=== PATIENT | female | born 1935 | race Caucasian/White ===

== ENCOUNTER → 2016-12-13 | Outpatient (CLI) | payer OTHER, BC | LOC: BMCIMAGING 08:20 | PROVIDERS: ATTEND Internal Medicine | DX: Z12.31 Encounter for screening mammogram for malignant neoplasm of breast (principal) | CPT/HCPCS: G0202 ==

== ENCOUNTER → 2017-08-20 | Outpatient (CLI) | payer OTHER, BC | LOC: BMCIMAGING 11:00 | PROVIDERS: ATTEND Family Medicine | DX: M79.89 Other specified soft tissue disorders (principal) ==

== ENCOUNTER → 2018-01-12 | Outpatient (CLI) | payer OTHER, BC | LOC: BMCIMAGING 08:26 | PROVIDERS: ATTEND Internal Medicine | DX: Z12.31 Encounter for screening mammogram for malignant neoplasm of breast (principal); Z80.3 Family history of malignant neoplasm of breast ==

== ENCOUNTER 2018-02-07 22:04 | Inpatient (IN) | payer OTHER, BC ==
--- NOTE | 2018-02-07 22:14 | EDPHY ---
H & P Time Seen by Provider: 02/07/18 22:11 HPI/ROS: Chief Complaint: Fall, right hip pain HPI: 82-year-old woman who reports no medical problems had a mechanical fall this evening landing on her right hip. Patient states she was going from her bedroom to the bathroom. Patient does admit to drinking gin and tonics this evening. EMS noted that she had an irregular rhythm. She reports no history of cardiac arrhythmia is in the past. No chest pain or shortness of breath. She did not hit her head. No loss of consciousness. She is awake and alert and able to tell me what happened. No fevers or chills. No cough. Family was able to help to a feet get her the bathroom with assistance but is continuing to complain of right-sided hip pain. She was able to weight bear. ROS: 10 systems were reviewed and were negative except those elements noted in the HPI. PMH: Denies Social History: No smoking, occasional alcohol Family History: non-contributory Physical Exam: Gen: Awake, Alert, No Distress HEENT: Nose: no rhinorrhea Eyes: PERRLA, EOMI Mouth: Moist mucosa Neck: Supple, no JVD Chest: nontender, lungs clear to auscultation Heart: S1, S2 normal, no murmur, tachycardic, irregularly irregular Abd: Soft, non-tender, no guarding Back: no CVA tenderness, no midline tenderness Ext: no edema, non-tender, there is a large hematoma over her right lateral hip with overlying ecchymosis. No bony tenderness. Skin: no rash Neuro: CN II-XII intact, Sensation grossly intact, Strength 5/5 in bilateral upper and lower extremities Constitutional: Initial Vital Signs Temperature (C) 36.7 C 02/07/18 22:05 Heart Rate 104 H 02/07/18 22:05 Respiratory Rate 18 02/07/18 22:05 Blood Pressure 93/70 L 02/07/18 22:05 O2 Sat (%) 95 02/07/18 22:05 O2 Delivery Mode Nasal Cannula O2 (L/minute) 2 Allergies/Adverse Reactions: erythromycin base [Erythromycin Base] Allergy (Intermediate, Verified 01/21/12 11:12) SCALP ITCHING AND FELT LIKE LITTLE BUMPS WERE ALL OVER IT Home Medications: Medication Instructions Recorded [place] 01/18/12 oxyCODONE/APAP [Percocet 1 tab PO Q6 #10 tab 01/18/12325] Medical Decision Making - Diagnostics Imaging Results: Imaging Impressions Hip X-Ray 02/07/18 22:13 Impression: Negative. No displaced fracture. Comment: If patient is unable to bear weight, consider proceeding with noncontrast CT of the pelvis. ED Course/Re-evaluation: 82-year-old with right hip contusion status post fall. She has a new onset AFib with RVR. She has been drinking tonight. Do not have time of onset. No fracture inhibitor large contusion. Plan will be to admit for further evaluation of her atrial fibrillation. I have called the hospitalist to arrange for admission. Will give 5 mg of metoprolol IV. Will hold on anticoagulation at the hospitalist's request. - Data Points Laboratory Results: Laboratory Results 02/07/18 22:39 02/07/18 22:39 02/07/18 02/07/18 02/07/18 22:43 22:39 22:39 WBC 5.30 10^3/uL 10^3/uL (3.80-9.50) RBC 2.64 10^6/uL L 10^6/uL (4.18-5.33) Hgb 11.3 g/dL L g/dL (12.6-16.3) Hct 32.7 % L % (38.0-47.0) MCV 123.9 fL H fL (81.5-99.8) MCH 42.8 pg H pg (27.9-34.1) MCHC 34.6 g/dL g/dL (32.4-36.7) RDW 18.0 % H % (11.5-15.2) Plt Count 89 10^3/uL L 10^3/uL (150-400) MPV 10.4 fL fL (8.7-11.7) Neut % (Auto) 74.2 % % (39.3-74.2) Lymph % (Auto) 13.4 % L % (15.0-45.0) [place] % (Auto) 7.9 % % (4.5-13.0) Eos % (Auto) 2.3 % % (0.6-7.6) Baso % (Auto) 1.3 % % (0.3-1.7) Nucleat RBC Rel Count 0.4 % H % (0.0-0.2) Absolute Neuts (auto) 3.93 10^3/uL 10^3/uL (1.70-6.50) Absolute Lymphs (auto) 0.71 10^3/uL L 10^3/uL (1.00-3.00) Absolute Monos (auto) 0.42 10^3/uL 10^3/uL (0.30-0.80) Absolute Eos (auto) 0.12 10^3/uL 10^3/uL (0.03-0.40) Absolute Basos (auto) 0.07 10^3/uL 10^3/uL (0.02-0.10) Absolute Nucleated RBC 0.02 10^3/uL H 10^3/uL (0-0.01) Immature Gran % 0.9 % % (0.0-1.1) Immature Gran # 0.05 10^3/uL 10^3/uL (0.00-0.10) Platelet Estimate Pending Smear Review By Pending Sodium 137 mEq/L mEq/L (135-145) Potassium 3.6 mEq/L mEq/L (3.5-5.2) Chloride 105 mEq/L mEq/L (97-110) Carbon Dioxide 20 mEq/l L mEq/l (22-31) Anion Gap 12 mEq/L mEq/L (6-14) BUN 14 mg/dL mg/dL (7-23) Creatinine 1.1 mg/dL H mg/dL (0.6-1.0) Estimated GFR 48 Glucose 105 mg/dL H mg/dL (70-100) Calcium 7.8 mg/dL L mg/dL (8.5-10.4) POC Troponin I 0.01 ng/mL ng/mL (0.00-0.08) Ethyl Alcohol 291 mg/dL H mg/dL (0-10) Point of Care Test Results: Chemistry 02/07/18 22:43 POC Troponin I 0.01 ng/mL ng/mL (0.00-0.08) Departure - Departure Disposition: [facility] Acute Clinical Impression: Atrial fibrillation, Hematoma of hip Condition: Fair Referrals: Patient,NotPresent [Unknown] - As per Instructions
[2018-02-07 22:51] LABS: PLATELET COUNT 89 10^3/uL (150-400)
[2018-02-07] MEDS ORDERED: METOPROLOL TARTRATE 5 MG/5 ML INJ IVP ONE (23:29)
[2018-02-07] MEDS ORDERED: ONDANSETRON DISINTEGRATING 4 MG TAB PO PRN (23:40)
[2018-02-07] MEDS ORDERED: ONDANSETRON 4 MG/2 ML VIAL IVP PRN (23:40)
[2018-02-08 00:03] LABS: INR 1.27 (0.83-1.16); PROTIME(PATIENT) 16.1 SEC (12.0-15.0)
[2018-02-08] MEDS: oxyCODONE IR 5 MG TAB PO PRN ×2 (02:01→19:45)
[2018-02-08] MEDS: METOPROLOL TARTRATE 25 MG TAB PO SCH ×2 (02:01→09:20)
--- NOTE | 2018-02-08 03:01 | CPEKG ---
Test Reason : OPEN Blood Pressure : / mmHG Vent. Rate : 110 BPM Atrial Rate : 000 BPM P-R Int : 156 ms QRS Dur : 100 ms QT Int : 343 ms P-R-T Axes : 000 -58 048 degrees QTc Int : 465 ms Atrial fibrillation Ventricular premature complex LAD, consider LAFB or inferior infarct Low voltage, extremity leads Confirmed by Tod Schmidt ([id number]) on 02/08/2018 3:01:23 AM Referred By: Confirmed By:Tod Schmidt
--- NOTE | 2018-02-08 04:47 | GHP ---
DATE OF ADMISSION: 02/07/2018 Patient provides history, is a fair historian. EMR was reviewed and case discussed with ED provider. CHIEF COMPLAINT: Right hip pain after a fall. HISTORY OF PRESENT ILLNESS: This is a very pleasant 82-year-old female with a past medical history significant for chronic back pain and vitamin D deficiency who presents to the emergency department today via EMS following a mechanical fall at home. The patient was spending time with her daughter. She reported that she had been drinking a martini when she had a mechanical fall. Patient is not sure exactly how she fell. She denies any headache, chest pain, palpitations, shortness of breath, lightheadedness or presyncope. She denies any head injury. No loss of consciousness. The patient landed on her right hip and arm. She has had increased pain following that fall. EMS transported the patient to the emergency department, however, noted that she was in atrial fibrillation with RVR, heart rate in the 120s. The patient without any hypoxia. Blood pressure was low normal 104/66 en route. The patient is not chronically on any blood thinners. She does report that over the past week, she has been feeling fatigued and generally unwell. She reports some GI upset, but no nausea, vomiting, no diarrhea. She endorses some chills but no fevers. She reports she and her family just recently returned from [place]. Her daughter who is at bedside has had upper respiratory-type symptoms with nasal congestion and cough for the last several days. The patient does not have any of these symptoms. REVIEW OF SYSTEMS: Ten systems reviewed, negative except as noted above. ALLERGIES: Erythromycin base. HOME MEDICATIONS: Vitamin D p.r.n. when patient can recall to take, Percocet 5/ 325 1 tab p.o. q.6 hours p.r.n. PAST MEDICAL HISTORY: Significant for chronic back pain. PAST SURGICAL HISTORY: Patient had an appendectomy at age 16. She denies any additional surgery. She reports that she had right upper extremity fracture and left upper extremity fractures after a mechanical fall that required setting and casting but no surgical intervention. FAMILY HISTORY: Unknown. Both parents are . SOCIAL HISTORY: The patient lives alone in her home. Her daughter is currently at bedside, lives locally. Good support available. The patient reports that she typically goes to the gym 3 times weekly for swimming and treadmill with multiple friends. However, her gym has been closed as of recently. Patient reports multiple times that she feels off her schedule. She feels that she perhaps has been drinking a little bit more at home since she has not been able to go to the gym, but does not believe that it is excessive. She denies any tobacco or illicit drugs or marijuana. CODE STATUS: The patient reports that she does not want any heroic measures including CPR and intubation. PHYSICAL EXAMINATION: VITAL SIGNS: Upon arrival to the ED, blood pressure was 93/70, heart rate 104 to 120s, respiratory rate 18, O2 saturation 94% on room air with temperature 36.7. Vitals currently available: Blood pressure 109/79, heart rate 100s to 1-teens, increases to 120s to 130s with movement, respiratory rate 17, O2 saturation 92% on 2 L by nasal cannula, temperature 36.4. GENERAL: No acute distress. Pleasant, frail, elderly female who is lying quietly in bed asleep. She wakes easily to her name. Her daughter is at bedside asleep. HEAD: Normocephalic, atraumatic. EYES: Extraocular muscles are grossly intact. Pupils equal, round, slightly decreased reactivity to light bilaterally but symmetric. No scleral icterus or conjunctival injection. ENT: Mucous membranes appear dry. No oropharyngeal erythema or exudates. NECK: Supple. Trachea midline. CV: Tachycardic and irregularly irregular. Limited exam for murmurs or rubs due to tachycardia. No chest wall tenderness to palpation. RESPIRATORY: Lungs are clear to auscultation bilaterally. No wheezes, rales, or rhonchi appreciated. No cough. ABDOMEN: Soft, obese. Positive bowel sounds. No tenderness to palpation. No rebound, guarding, or masses appreciated. : No suprapubic tenderness to palpation. No Hall catheter in place. EXTREMITIES: Patient with decreased range of motion in the right hip. She does complain of pain with flexion or movement. She has a fairly large hematoma and swelling over the right lateral hip. It is tender to palpation. She is able to move all her upper extremities with strength grossly intact. NEURO: Grossly nonfocal. No facial drooping. Moves all extremities with limitations as noted above. PSYCH: Patient is slightly anxious, but she is pleasant and cooperative. She is occasionally slightly tangential, but redirectable. No tremors present. LABORATORY STUDIES: WBCs 5.30, H and H are 11.3 and 32.7, MCV of 123.9, platelet count is 89,000, no bands. PT 16.1, INR is 1.27, PTT is 31.3. Sodium is 137, potassium 3.6, chloride 105, CO2 is 20, anion gap 12, BUN is 14, creatinine is 1.1. GFR is 48, glucose 105, calcium 7.8, total bilirubin is 1.5 , conjugated 0.7, ALT 66, AST is 133, alkaline phosphatase is 119. Troponin is negative. Total protein 5.8, albumin 3.1, TSH 3.160. U-tox; alcohol level is 291 mg/dL. STUDIES: Hip x-ray image and report reviewed myself, negative for displaced fracture. Demineralized bones. Severe right and moderate left hip osteoarthritis with joint space narrowing and osteophyte. EKG reviewed myself showing atrial fibrillation in the 110s. The PVCs are present. Left axis deviation is present. Q-waves in the inferior leads. ST depressions in the lateral leads. QTc 465. No acute ST elevations. ASSESSMENT/PLAN: 82-year-old female with history of chronic back pain who presents following a mechanical fall in setting of alcohol consumption. 1. Atrial fibrillation with rapid ventricular response: The patient denies any symptoms of palpitations, presyncope, chest pain or shortness of breath. Her resting ventricular rate was in the low 100s in the ER and would rise with any kind of movement to the 120s to 130s. She was given 5 mg dose of metoprolol with some improvement in her rate control. Since arrival to the medical floor, patient's heart rate continues to rise drastically up to the 140s with movement or ambulation to the bathroom. She did endorse a little bit of lightheadedness. She was given 12.5 mg dose of p.o. metoprolol and heart rate is in the low 100s. Echocardiogram has been ordered for the morning. Patient is not a good candidate for anticoagulation at this time in setting of active right hip hematoma, anemia and coagulopathy, with a platelet count of 89, 000. Additional workup as noted below. 2. Right hip hematoma: Will continue to monitor. Holding anticoagulation, fall precautions, bed alarm. 3. Coagulopathy: Suspect patient has some underlying liver involvement related to an under-reported consumption of alcohol. The patient's alcohol level just under 300 mg/dL. I suspect that she is under-reporting as she did advise her intake nurse that she has 1 drink on a daily basis. She denied that she drank daily, but more recently notes that her drinking habits have changed slightly as she has not been able to go to the gym to [employer]. She also has transaminitis and hyperbilirubinemia along with elevated PT/INR. Discussed with the patient obtaining a limited abdominal ultrasound to further evaluate for these abnormal labs and patient declines for today, but amenable to repeating labs and reconsidering if these remain abnormal. The patient without any abdominal pain on exam. No Germain sign. She does not have any apparent jaundice or scleral icterus. Additional counseling for alcohol cessation should be encouraged during this hospital stay. However, at this time , patient denies that she drinks any significant quantity of alcohol. The patient's historical lab studies were reviewed. Appears she had an abnormal SPEP study. These labs are remote from 2015. The patient denies any chronic or diagnosed medical issues beyond her chronic back pain. Additional investigation into patient's previous workup needed. 4. Anemia: Appears the patient has a history of anemia of chronic disease based on labs from 2014. Previous hemoglobin and hematocrit available from that time were not as decreased as they are today. Unclear how much of the anemia is related to patient's hematomas. Will monitor her hemoglobin and hematocrit closely. She also reports that she has been having intermittent episodes of epistaxis over the last 24 hours. 5. Ethyl alcohol use: Patient reported to me that she does not drink daily but may have been increasing over the past month since her gym has been under [employer]. She did note to the RN she does drink on a daily basis, usually a martini. Will monitor for any evidence of withdrawal. At this time, her alcohol level is elevated. 6. Chronic pain: Patient currently comfortable as long as she is not ambulating. We will plan to have PT/OT evaluate the patient tomorrow. 7. Fluid, electrolyte, nutrition: Patient will receive IV fluids over the course of the evening, regular diet as tolerated. Electrolytes will be monitored. Replace if needed. 8. Prophylaxis: Sequential compression devices if tolerated. Holding anticoagulation in setting of coagulopathy and thrombocytopenia and large acute right hip hematoma. CODE STATUS: DNR/DNI. Patient does not want any heroic measures. DISPOSITION: Patient currently admitted to observation status. Should she convert and pending additional studies, however, if patient should have persistent studies worsening laboratory studies or continued difficulty with ambulation, may need to consider transition to inpatient care. Currently patient is being monitored closely on PCU for close cardiac monitoring. /[id number]/MODL MTDD
[2018-02-08 05:45] LABS: CREATINE KINASE 77 IU/L (0-156)
[2018-02-08] MEDS ORDERED: DILTIAZEM 125 MG in D5W 125 ML IV SCH (11:15)
--- NOTE | 2018-02-08 11:43 | ECHO ---
[email or web address] [address] [address] Main: [phone] Fax: Transthoracic Echocardiogram Name: BORIS OSULLIVAN MR#: [id number] Study Date: 02/08/2018 Study Time: 10:34 AM Date of : 1935 Age: 82 year(s) Height: 167.6 cm (66 in.) Weight: 77.11 kg (170 lb.) BSA: 1.87 m2 Gender: Female Examination: Echo Indication: New onset of Atrial Fibrillation Image Quality: Contrast: Requested by: Cass Hood BP: 106 mmHg/77 mmHg Heart Rate: Rhythm: Atrial fibrillation Indication: New onset of Atrial Fibrillation Procedure Staff Mold Dumper: Tanner Polk RDCS Reading Physician: Argenis Shore MD Requesting Provider: Conclusions: Normal size left ventricle. Mildly reduced systolic LV function. The ejection fraction is estimated to be 40-45 %. mild global hypokinesis with more significant hypokinesis of the septum. Normal size right ventricle. Mildly reduced RV function. The left atrium is severely dilated. Trivial to mild mitral regurgitation. No aortic valve stenosis is present. Mild tricuspid regurgitation is present. The pulmonary artery pressure is mildly increased. Estimated PASP is 41mmHg No pericardial effusion. There is no previous echocardiogram for comparison. Measurements: Chambers Valvular Assessment AV/MV Valvular Assessment TV/PV Normal Normal Normal Name Value Range Name Value Range Name Value Range Ao Osiris (MM): 3.1 cm (2.2 cm-3.7 AV Vmax: 0.91 m/s (1 m/s-1.7 TR Vmax: 3.00 mm/s ( - ) cm) m/s) TR PGmax: 36 mmHg ( - ) IVSd (2D): 0.9 cm (0.6 cm-1.1 AV maxP mmHg ( - ) syst. PAP: 41 mmHg ( - ) cm) LVOT Vmax: 0.45 m/s (0.7 m/s-1.1 PV Vmax: 0.72 m/s (0.6 m/s-0.9 LVDd (2D): 4.4 cm (3.9 cm-5.3 m/s) m/s) cm) MV E Vmax: 0.74 m/s ( - ) PV PGmax: 2 mmHg ( - ) LVDs (2D): 3.6 cm (2.1 cm-4 cm) LVPWd (2D): 1.0 cm ( - ) EF Range: 40-45 % Patient: BORIS OSULLIVAN Study Date: 02/08/2018 Page 1 of 2 10:34 AM RVDd(2D): 3.8 cm (1.9 cm-3.8 cmmm) Continued Measurements: Chambers Valvular Assessment AV/MV Valvular Assessment TV/PV Name Value Name Value Name Value LADs: 4.0 cm MV E' Septal: 0.06 m/s CVP (est.): 5 mmHg LADs Lon.9 cm MV E/E' Septal: 12.90 LA Area: 33.5 cm2 LA Volume: 115 ml LA Volume Index: 61.5 ml/m2 Findings: Left Ventricle: Normal size left ventricle. Mildly reduced systolic LV function. The ejection fraction is estimated to be 40-45 %. mild global hypokinesis with more significant hypokinesis of the septum. Right Ventricle: Normal size right ventricle. Mildly reduced RV function. Left Atrium: The left atrium is severely dilated. Right Atrium: The right atrium is severely dilated. Mitral Valve: Mild mitral valve leaflet calcification is present. Trivial to mild mitral regurgitation. Aortic Valve: The aortic valve is tri-leaflet. Mild aortic cusp calcification is noted. There is no aortic valve regurgitation. No aortic valve stenosis is present. Tricuspid Valve: Mild tricuspid regurgitation is present. The pulmonary artery pressure is mildly increased. Estimated PASP is 41mmHg Pulmonic Valve: The pulmonic valve is normal in appearance and function. Aorta: The aorta is normal. Pericardium: No pericardial effusion. (No Signature Object) Patient: BORIS OSULLIVAN Study Date: 02/08/2018 Page 2 of 2 10:34 AM [id number]
[2018-02-08] MEDS: DILTIAZEM HCL/D5W 125 ML IV SCH (12:00)
--- NOTE | 2018-02-08 12:14 | GCON ---
DATE OF CONSULTATION: 02/08/2018 REFERRING PHYSICIAN: Dr. Rivera CHIEF COMPLAINT: We have been asked by Dr. Rivera to evaluate the patient with atrial fibrillation. HISTORY OF PRESENT ILLNESS: The patient is an 82-year-old female with a past medical history for chr onic back pain who presented to the emergency department on 02/07/2018, with a mechanical fall at [facility]. The patient was in her usual state of health until the day of admission when she was celebrating the holidays with a martini. Later that day, she went to the bathroom, and upon returning to her bed , she fell and landed on her right hip. EMS was called and patient was brought to the emergency depa rtment for further evaluation. In the emergency department, patient was noted to be in atrial fibrillation with a heart rate of 120 beats per minute. Patient denies symptoms of palpitations, syncope, or presyncope with the fall. Mauro dowd's blood alcohol content was 291 on admission. Patient denies a previous history of atrial fibr illation. There is no history of palpitations, syncope, or presyncope. Patient's last visit her [facility] physician was approximately 2 years ago and she had a normal rhythm at that time per report . There is no history of hypertension, diabetes, stroke, or vascular disease. PAST MEDICAL HISTORY: 1. Vitamin D deficiency. 2. Chronic back pain. PAST SURGICAL HISTORY: 1. Status post appendectomy. 2. Status post hand surgery for a fall approximately 10 years ago. MEDICATIONS: Please see medicine reconciliation form. ALLERGIES: Erythromycin. SOCIAL HISTORY: Patient lives independently. She has a supportive family. Patient does report cons uming approximately 2 drinks per night. She does not smoke. FAMILY HISTORY: Noncontributory. REVIEW OF SYSTEMS: 10-point review of systems is negative, except for right hip pain. PHYSICAL EXAMINATION: GENERAL: The patient is resting in bed. She does report of right hip pain at this time. VITAL SIGNS: Temperature is afebrile. Pulse is 109, blood pressure 106/77, respiratory rate is 19, SaO2 is 92% on O2 mask. HEENT: Normocephalic, atraumatic. Extraocular muscles intact. NECK: No JVD. No bruits. LUNGS: Clear to auscultation bilaterally. CARDIOVASCULAR: Tachycardi a, irregular rhythm, S1-S2. Grade 2/6 systolic ejection murmur is noted at the left lateral sternal border. ABDOMEN: Soft, mildly tender to palpation. Normoactive bowel sounds. EXTREMITIES: There is evidence of a hematoma in her right hip area. SKIN: No evidence of ecchymoses. NEURO: Patient is awake, alert, and oriented x3. LABORATORY/IMAGING: White blood cell count 6.51, hemoglobin is 10.3, hematocrit is 30.1, platelet co unt is 86. INR 1.27. Sodium 139, potassium 3.6, chloride 106, CO2 21, BUN 14, creatinine 1.1. AST is elevated at 133, ALT is elevated at 66. Troponin within normal limits x1. TSH is within normal l imits. Alcohol level is 291. EKG demonstrates atrial fibrillation with premature ventricular contraction, left anterior fascicular block. ASSESSMENT/PLAN: The patient is an 82-year-old female with atrial fibrillation. Patient presents wi th new diagnosis of atrial fibrillation. The onset is not entirely clear as patient is asymptomatic with respect to her atrial fibrillation. The onset is likely over the last 2 years based on her [facility]. Her heart rate is suboptimally controlled at this time. Her CHADS2-VASc score is 3 for age and female sex. We will plan on a rate control and anticoagulation strategy at this time as patient is not a good ant icoagulation candidate given active hematoma, as well as low platelet count and some hepatic insuffic iency. We will start diltiazem for rate control and use aspirin for anticoagulation. Long-term, pat ient would likely benefit from Coumadin or a novel anticoagulation agent. Will re-evaluate this deci dusty process in approximately 2 to 3 weeks period of time once her hepatic impairment has been evalua jaquelin and she is recovered from her fall. Could also consider using a Watchman device. /[id number]/MODL
--- NOTE | 2018-02-08 13:32 | HOSPPROG ---
Hospitalist Progress Note Assessment/Plan: A Fib w RVR - Admitted with HR 100-140's - S/p 5 mg IV Metoprolol in ED, started on Metoprolol 12.5 mg BID overnight - HR remains elevated overnight especially with activity - Cardiology consulted this AM for further evaluation, recommended starting Diltiazem gtt for rate control, likely transition to PO diltiazem - TTE ordered - CHADsVASC >2 given patient's age however given recent fall with hematoma would hold off on AC, will start ASA 81 mg for now - Plan per cardiology to reevaluate chronic AC as an outpatient Fall with R Hip Hematoma - R Hip XR negative for fracture on admission - If patient unable to bear weight on RLE, will proceed with RLE CT to further evaluate - PT/OT ordered - Holding AC - PRN Pain medications Acute Hypoxic Respiratory Failure - Requiring 6L of 02 to maintain 02 sat >88% - No hx of 02 use, lung disease - Will order CXR to further evaluate, will consider CT if no findings - Continue to wean 02 as tolerated Coagulopathy - Suspect underlying liver involvement related to under-reported consumption of alcohol - ETOH level 291 on admission - Also with hyperbilirubinemia and elevated INR - Will order RUQ U/S to further evaluate Anemia - Hgb 11.3 on admission - Appears hx of ACD from 2014 - Will continue to monitor FEN: Regular, IVF PRN Code: DNR DVT PPx: Holding in setting of bleed Dispo: Pending clinical course Subjective: Patient reports pain in RLE this AM Objective: Vital Signs Temp Pulse Resp BP Pulse Ox 36.8 C 109 H 19 106/77 92 02/08/18 07:52 02/08/18 12:00 02/08/18 07:52 02/08/18 09:20 02/08/18 07:52 Laboratory Results 02/08/18 03:26 02/08/18 03:26 02/07/18 02/08/18 02/09/18 05:59 05:59 05:59 Intake Total 1056 Balance 1056 PT 16.1 SEC (12.0-15.0) H 02/07/18 22:39 INR 1.27 (0.83-1.16) H 02/07/18 22:39 - Physical Exam Constitutional: no apparent distress Eyes: PERRL Ears, Nose, Mouth, Throat: moist mucous membranes Cardiovascular: irregularly irregular, tachycardia, No edema Respiratory: no respiratory distress Gastrointestinal: soft, non-tender abdomen Skin: warm Musculoskeletal: pain with ROM Neurologic: AAOx3 Psychiatric: interacting appropriately ICD10 Worksheet Patient Problems: Problems Problem Status Onset Atrial fibrillation Acute Hematoma of hip Acute
--- NOTE | 2018-02-08 15:13 | ASMTCMCOM ---
CM Note CM Note Notes: Pt is a 82 yo F [place] Pt presents with a-fib and hip hematoma. Pt has a history of falls and alcohol use. Pt and daughter are interested in getting a life alert. Pt needs ETOH education prior to discharge. Plan: TBD Date Signed: 02/08/2018 03:12 PM Electronically Signed By:HERNAN Segovia
--- NOTE | 2018-02-08 16:52 | PDMN ---
Medical Necessity Medical necessity: [facility] [place] Afib: 82 yo presents post mechanical fall found to be in afib w/ RVR. Initially obs for workup but HR remains 100-140s and pt w/ new onset hypoxic resp fx overnight requiring O2 via mask to keep sats >90%. Cardiology consulted, TTE pending. Meets [facility] IP criteria for afib w/ hemodynamic instability w/ persistent RVR and new hypoxemia. Change to IP status 02/08/18@1426 per MD order.
[2018-02-08] MEDS: NS 1,000 ML IV SCH (19:46)
[2018-02-09] MEDS: DILTIAZEM HCL/D5W 125 ML IV SCH (04:11)
[2018-02-09] MEDS: NS 1,000 ML IV SCH (05:42)
[2018-02-09] MEDS: ASPIRIN 325 MG TAB PO SCH (08:04)
--- NOTE | 2018-02-09 11:15 | PDCARPN ---
Cardiology Progress Note Chief Complaint: Fall Assessment/Plan: Assessment: The patient is a 82 y/o F who was admitted with mechanical fall in the setting of ETOH use. She was found to be in a.fib with RVR on admission. She was started on a Dilt drip with a improvement in her rates. A echo showed global hypokinesis which was more prominent within the septum with a EF of 40-45%. Her initial trop was negative. CXR shows chronic CHF. She was not started on anticoagulation secondary to a hematoma. Plan: 1. Atrial fibrillation- plan to rate control with dilt. Will transition to PO Dilt today. She has a CHADS VASc of 3 but has a active hematoma. Will hold full dose anticoagulation for but continue Aspirin. 2. new CMP with EF of 40-45%. Tachycardic induced (most likely) versus ETOH induced (least likely) versus ischemic. She is CP free and her initial trop was negative. She will need a ischemic work-up at some point but this can be done as a outpatient which she prefers. 3. Systolic CHF- Will give one dose of Lasix 20mg IV now. Soft BP yesterday. 4. Mechanical fall with leg hematoma- having significant discomfort. Plan for CT today. 5. Anemia-secondary to #3. 6. hepatic impairment- work-up pending. 02/09/18 11:41 Subjective: She denies any CP, SOB, or edema. She is complaining of significant hip pain. Reviewed/Discussed With: hospitalist Objective: Vital Signs (8 Hrs) Temp Pulse Resp BP Pulse Ox 02/09/18 08:00 36.5 C 8 L 17 111/71 95 02/09/18 05:39 36.6 C 89 20 118/77 94 02/09/18 04:11 91 Intake/Output (24 Hrs) 02/08/18 02/09/18 02/10/18 05:59 05:59 05:59 Intake Total 1465 760.5 Output Total 100 Balance 1465 660.5 Intake: Oral (ml) 300 240 IV Infused (ml) 1165 520.5 Diltiazem HCl/D5w 125 ml 65 47.5 @ Titrate IV CONT LATANYA Rx# :[id number] Ns 1,000 ml @ 100 mls/hr 1100 473 IV CONT LATANYA Rx#: [id number] Output: Urine (ml) 100 Bedside Commode 100 Other: Weight 85.5 kg Number of Voids Bedside Commode 1 Incontinence 1 Number of Stools Bedside Commode 1 Result Diagrams: 02/09/18 03:46 02/09/18 03:46 Telemetry: a. fib rate controlled rate 70-90 BPM. - Physical Exam Constitutional: no apparent distress Cardiovascular: irregularly irregular Respiratory: other (decreased breath sounds at the left lung base) Skin: no edema Neurologic: AAOx3 ICD10 Worksheet Patient Problems: Problems Problem Status Onset Atrial fibrillation Acute Hematoma of hip Acute
[2018-02-09] MEDS ORDERED: FUROSEMIDE 20 MG/2 ML VIAL IVP ONE (11:43)
[2018-02-09] MEDS: DILTIAZEM CD 120 MG CAP PO SCH (11:51)
--- NOTE | 2018-02-09 14:00 | HOSPPROG ---
Hospitalist Progress Note Assessment/Plan: A Fib w RVR - Admitted with HR 100-140's - S/p 5 mg IV Metoprolol in ED, started on Metoprolol 12.5 mg BID - HR remains elevated overnight especially with activity - Cardiology consulted on 02/08, started Diltiazem gtt with rate controlled, transitioned to PO diltiazem 240 mg qd today - CHADsVASC >2 given patient's age however given recent fall with hematoma would hold off on AC, will continue ASA 81 mg for now - Plan per cardiology to reevaluate chronic AC as an outpatient Fall with R Hip Hematoma - R Hip XR negative for fracture on admission - Patient still with difficulty bearing weight, proceed with RLE CT to further evaluate - PT/OT ordered - PRN Pain medications Acute Hypoxic Respiratory Failure - Requiring 5L of 02 to maintain 02 sat >88% - No hx of 02 use, lung disease - CXR performed yesterday, possible focal infiltrate however no cough, fever, leukocytosis, will hold off on abx, also shows blunting of costoprhenic angles, likely component of fluid overload - TTE performed on 02/08 shows EF 40-45% with mild global hypokinesis, septal hypokinesis - Cardiology recommends 20 mg IV Lasix today given low BP yesterday, ischemic w/ u, but given negative trop and CP free, will defer to outpatient - Continue to wean 02 as tolerated Hepatic Steatosis - Suspect underlying liver involvement related to under-reported consumption of alcohol - ETOH level 291 on admission - Also with hyperbilirubinemia and elevated INR - RUQ U/S performed yesterday shows diffuse hepatic steatosis - Continue to monitor LFTs Anemia - Hgb 11.3 on admission, 9.9 this AM - Appears hx of ACD from 2014 - Will continue to monitor, transfused H/H <7/20 FEN: Regular, IVF PRN Code: DNR DVT PPx: Holding in setting of hematoma Dispo: Pending clinical course Subjective: Patient reports difficulty bearing weight on RLE this AM Objective: Vital Signs Temp Pulse Resp BP Pulse Ox 36.5 C 95 12 105/60 92 02/09/18 11:41 02/09/18 11:51 02/09/18 11:41 02/09/18 11:51 02/09/18 11:41 Laboratory Results 02/09/18 03:46 02/09/18 03:46 02/08/18 02/09/18 02/10/18 05:59 05:59 05:59 Intake Total 1465 760.5 Output Total 100 Balance 1465 660.5 PT 16.1 SEC (12.0-15.0) H 02/07/18 22:39 INR 1.27 (0.83-1.16) H 02/07/18 22:39 - Physical Exam Constitutional: no apparent distress Eyes: PERRL Ears, Nose, Mouth, Throat: moist mucous membranes Cardiovascular: irregularly irregular Respiratory: no respiratory distress, inspiratory crackles Gastrointestinal: soft, non-tender abdomen Skin: normal color Musculoskeletal: pain with ROM Neurologic: AAOx3 Psychiatric: interacting appropriately ICD10 Worksheet Patient Problems: Problems Problem Status Onset Atrial fibrillation Acute Hematoma of hip Acute
[2018-02-09] MEDS ORDERED: FUROSEMIDE 20 MG/2 ML VIAL ONE (14:20)
[2018-02-09] MEDS: oxyCODONE IR 5 MG TAB PO PRN ×2 (14:40→21:02)
[2018-02-09] MEDS: ACETAMINOPHEN 325 MG TAB PO PRN (21:03)
[2018-02-10 04:33] LABS: PLATELET COUNT 74 10^3/uL (150-400)
[2018-02-10] MEDS: oxyCODONE IR 5 MG TAB PO PRN ×3 (04:43→18:27)
[2018-02-10] MEDS: DILTIAZEM CD 120 MG CAP PO SCH (08:28)
[2018-02-10] MEDS: ASPIRIN 325 MG TAB PO SCH (08:28)
--- NOTE | 2018-02-10 09:00 | PDCARPN ---
Cardiology Progress Note Chief Complaint: No complaints today. Feeling well. Mild right hip pains. Assessment/Plan: Assessment: 02-10-18 Patient doing well today. No cardiovascular complaints. Patient was voicing her desire to find placement after this hospitalization. Heart rates are slightly more elevated today (100-110 bpm) in comparison to days prior. Ongoing use of IS at bedside. Intravenous therapy with CCB was discontinued yesterday in favor of oral therapy (240 mg of cardizem). With this change, there has been a mild elevation in heart rates noted. Anemia continues to be noted (continued drift downward). Renal function is stable (Creatinine at 1.1) . Liver enzymes continue to be elevated (query alcohol use). No evidence of withdrawal is noted this morning (uncertain on the chronicity or frequency of alcohol consumption). Blood pressure was well controlled today and through the night. 02-09-18 The patient is a 82 y/o F who was admitted with mechanical fall in the setting of ETOH use. She was found to be in a.fib with RVR on admission. She was started on a Dilt drip with a improvement in her rates. A echo showed global hypokinesis which was more prominent within the septum with a EF of 40-45%. Her initial trop was negative. CXR shows chronic CHF. She was not started on anticoagulation secondary to a hematoma. Plan: (1) Given the ongoing elevation to heart rates that has been noted, would add low dose beta ronan - especially with the mild reduction in systolic function that has been noted - 25 mg of metoprolol tartrate (2) Would recommend the patient have outpatient stress testing given the reduction in LVEF noted by echocardiography (3) Uncertain etiology to the anemia that is noted. Query right hip haematoma as part of the cause (4) No CHF signs or symptoms noted today - would refrain from diuretic use in order to keep blood pressure normotensive (and potentially allow for the low dose of beta rnoan) (5) Ongoing work with social work for placement/rehab (6) [id number] score is 3/4 (3 for age and sex, and 4 if "CHF" signs/symptoms noted with reduction in LVEF), and anticoagulation is needed for CVA prophylaxis given ongoing atrial fibrillation, but also for DVT prophylaxis given her immobility secondary to fall. Ongoing anemia is a concern with start to anticoagulation, and would recommend if this therapy is to be started, would do so in house to more closely monitor H/H. Subjective: No active cardiovascular complaints this morning. Objective: Vital Signs (8 Hrs) Temp Pulse Resp BP Pulse Ox 02/10/18 08:28 109 H 113/83 H 02/10/18 07:16 36.8 C 108 H 16 113/83 H 92 02/10/18 04:00 36.6 C 100 15 120/80 94 Intake/Output (24 Hrs) 02/09/18 02/10/18 02/11/18 05:59 05:59 05:59 Intake Total 1465 960.5 Output Total 1600 Balance 1465 -639.5 Intake: Oral (ml) 300 440 IV Infused (ml) 1165 520.5 Diltiazem HCl/D5w 125 ml 65 47.5 @ Titrate IV CONT LATANYA Rx# :[id number] Ns 1,000 ml @ 100 mls/hr 1100 473 IV CONT LATANYA Rx#: [id number] Output: Urine (ml) 1600 Bedside Commode 1000 Catheter 600 Other: Weight 85.5 kg 85.5 kg Number of Voids Bedside Commode 1 Incontinence 1 Number of Stools Bedside Commode 1 Result Diagrams: 02/10/18 03:38 02/10/18 03:38 Telemetry: atrial fibrillation with rapid ventricular response (heart rates were >110 bpm) - Physical Exam Constitutional: WDWN, healthy appearing, no apparent distress Eyes: PERRL, EOMI Ears, Nose, Mouth, Throat: moist mucous membranes Cardiovascular: irregularly irregular, pulses symmetric bilat, No jugular vein distention Peripheral Pulses: 2+: dorsalis-pedis (R), dorsalis-pedis (L) Respiratory: clear to auscultate bilat, no crackles, no wheezes, reduced air movement (in the bases) Gastrointestinal: normoactive bowel sounds Skin: no rashes, no edema Musculoskeletal: no muscular tenderness (but right hip pains are noted) Neurologic: AAOx3, CN II-XII grossly intact Psychiatric: cooperative, interactive, following commands ICD10 Worksheet Patient Problems: Problems Problem Status Onset Atrial fibrillation Acute Hematoma of hip Acute
--- NOTE | 2018-02-10 10:36 | SOAPPROG ---
SOAP Progress Note Assessment/Plan: Assessment: nonsurgical pelvis fx Plan: 02/10/18 10:35 WBAT Walker fu with xrays in 1-2 weeks PCP or Ortho will sign off call for ? Objective: Vital Signs Temp Pulse Resp BP Pulse Ox 36.8 C 109 H 16 113/83 H 92 02/10/18 07:16 02/10/18 08:28 02/10/18 07:16 02/10/18 08:28 02/10/18 07:16 Laboratory Results 02/10/18 03:38 02/10/18 03:38 02/09/18 02/10/18 02/11/18 05:59 05:59 05:59 Intake Total 1465 960.5 Output Total 1600 Balance 1465 -639.5 PT 16.1 SEC (12.0-15.0) H 02/07/18 22:39 INR 1.27 (0.83-1.16) H 02/07/18 22:39 see H and P ICD10 Worksheet Patient Problems: Problems Problem Status Onset Atrial fibrillation Acute Hematoma of hip Acute
--- NOTE | 2018-02-10 11:06 | GCON ---
ORTHOPEDIC ER CONSULT CHIEF COMPLAINT: Right groin pain. DIAGNOSES: 1. Right inferior superior rami fracture. 2. Right hip arthritis. HISTORY OF PRESENT ILLNESS: The patient is an 82-year-old female. She was admitted on 02/07/2018, wh o had a mechanical fall on her right hip. She was triaged to the emergency room. X-rays were obtained , which were negative, except for hip arthritis, and then a CT scan was obtained of the pelvis during hospital admission. I was asked to consult for pelvic fracture. Please see details of ER H and P and admitting H and P. PHYSICAL EXAMINATION: PERTINENT ORTHOPEDIC: Reveals a well-appearing female. She has a negative log roll. She is able to actively flex her hip to 90 degrees with some groin pain. She does have difficul ty bearing weight, but we do not test her weightbearing. She has equal leg lengths. ABDOMEN: Soft. DATA: X-rays were reviewed, showed right hip arthritis. CT scan was reviewed, showed a superior infe rior rami fracture, minimally displaced. No evidence of femoral neck hip fracture or intertrochanteric fracture. IMPRESSION/RECOMMENDATIONS: Stable pelvis injury. Recommend gentle range of motion. Weightbearing as tolerated with a walker. I anticipate that her pain will subside in the next few weeks. Follow up wi th her regular primary care physician for x-rays. /[id number]/MODL
[2018-02-10] MEDS ORDERED: MAGNESIUM HYDROXIDE 30 ML UDCUP PO PRN (12:40)
[2018-02-10] MEDS ORDERED: POLYETHYLENE GLYCOL 3350 17 GM PKT PO PRN (12:40)
[2018-02-10] MEDS ORDERED: LACTULOSE 20 GM/30 ML UDCUP PO PRN (12:40)
[2018-02-10] MEDS ORDERED: BISACODYL 10 MG SUPP PR PRN (12:40)
--- NOTE | 2018-02-10 13:47 | ASMTCMCOM ---
CM Note CM Note Notes: Met with patient and daughter Debra to discuss rehab. Patient is amenable although anxious. I have sent referrals to [facility] and [facility], and Debra will visit today and let us know which one they choose. I also answered questions about what patient can expect upon discharge from SNF (ie homecare, private duty, etc....). Case Management will follow. Current CM Discharge plan: SNF, location TBD Date Signed: 02/10/2018 01:46 PM Electronically Signed By:Ashley Vora RN
--- NOTE | 2018-02-10 15:00 | HOSPPROG ---
Hospitalist Progress Note Assessment/Plan: A Fib w RVR - Admitted with HR 100-140's - S/p 5 mg IV Metoprolol in ED, started on Metoprolol 12.5 mg BID - HR remains elevated overnight especially with activity - Cardiology consulted on 02/08, started Diltiazem gtt with rate controlled, transitioned to PO diltiazem 240 mg qd yesterday - CHADsVASC >2 given patient's age however given recent fall with hematoma would hold off on AC, will continue ASA 81 mg for now - Plan per cardiology to reevaluate chronic AC as an outpatient R Hip Fx - R Hip XR negative for fracture on admission - RLE CT performed on 02/09 shows nondisplaced fractures - Ortho consulted recommended nonoperative management, WBAT - PT/OT - PRN Pain medications Acute Hypoxic Respiratory Failure - Requiring 5L of 02 to maintain 02 sat >88%, improved to 2L this AM - No hx of 02 use, lung disease - CXR performed, possible focal infiltrate however no cough, fever, leukocytosis , will hold off on abx, also shows blunting of costoprhenic angles, likely component of fluid overload - TTE performed on 02/08 shows EF 40-45% with mild global hypokinesis, septal hypokinesis - Cardiology recommending holding lasix, ischemic w/u, but given negative trop and CP free, will defer to outpatient - Continue to wean 02 as tolerated Hepatic Steatosis - Suspect underlying liver involvement related to under-reported consumption of alcohol - ETOH level 291 on admission - Also with hyperbilirubinemia and elevated INR - RUQ U/S performed yesterday shows diffuse hepatic steatosis - Continue to monitor LFTs Anemia - Hgb 11.3 on admission, 9.5 this AM - Appears hx of ACD from 2014 - Will continue to monitor, transfused H/H <7/20 FEN: Regular, IVF PRN Code: DNR DVT PPx: Holding in setting of hematoma Dispo: Pending clinical course Objective: Vital Signs Temp Pulse Resp BP Pulse Ox 36.6 C 91 15 110/72 91 L 02/10/18 11:36 02/10/18 11:36 02/10/18 11:36 02/10/18 11:36 02/10/18 11:36 Laboratory Results 02/10/18 03:38 02/10/18 03:38 12/02/10/18 02/11/18 05:59 05:59 05:59 Intake Total 1465 960.5 Output Total 1600 50 Balance 1465 -639.5 -50 PT 16.1 SEC (12.0-15.0) H 02/07/18 22:39 INR 1.27 (0.83-1.16) H 02/07/18 22:39 - Physical Exam Constitutional: no apparent distress Eyes: PERRL Ears, Nose, Mouth, Throat: moist mucous membranes Cardiovascular: irregularly irregular Respiratory: reduced air movement Skin: warm Neurologic: AAOx3 Psychiatric: interacting appropriately ICD10 Worksheet Patient Problems: Problems Problem Status Onset Atrial fibrillation Acute Hematoma of hip Acute
[2018-02-10] MEDS: SENNOSIDES/DOCUSATE SODIUM TAB PO SCH (20:26)
[2018-02-10] MEDS: ACETAMINOPHEN 325 MG TAB PO PRN (20:26)
[2018-02-11] MEDS: oxyCODONE IR 5 MG TAB PO PRN ×3 (00:38→16:23)
[2018-02-11 04:46] LABS: PLATELET COUNT 84 10^3/uL (150-400)
[2018-02-11] MEDS: DILTIAZEM CD 120 MG CAP PO SCH (09:11)
[2018-02-11] MEDS: ASPIRIN 325 MG TAB PO SCH (09:12)
[2018-02-11] MEDS: SENNOSIDES/DOCUSATE SODIUM TAB PO SCH (09:12)
--- NOTE | 2018-02-11 09:43 | PDCARPN ---
Cardiology Progress Note Chief Complaint: Hip pain Assessment/Plan: Assessment: The patient is a 82 y/o F who was admitted with mechanical fall in the setting of ETOH use. She was found to be in a.fib with RVR on admission. She was started on a Dilt drip with a improvement in her rates. A echo showed global hypokinesis which was more prominent within the septum with a EF of 40-45%. Her initial trop was negative. CXR shows chronic CHF. She was not started on anticoagulation secondary to a hematoma. She was diuresed on Friday and her rates are better controlled. She states she feels 100% better today. Plan: 1. Atrial fibrillation- She was started on PO dilt and low dose Metoprolol was added yesterday. Her rates are adequately controlled ranging from 70-115BPM. She has a CHADS VASc of 4 but has a active hematoma. Full dose anticoagulation is on hold but she will continue Aspirin. 2. new CMP with EF of 40-45%. Tachycardic induced (most likely) versus ETOH induced (least likely) versus ischemic. She is CP free and her initial trop was negative. She will need a ischemic work-up at some point but this can be done as a outpatient which she prefers. 3. Systolic CHF- Improved with Lasix x1. 4. Mechanical fall with leg hematoma- CT showed stable superior inferior rami fx. Plan to treat conservatively. 5. Anemia-secondary to #4. 6. hepatic impairment- work-up pending. 02/11/18 09:35 Subjective: She denies any CP or SOB. She is having hip/leg pain which is improved from yesterday and well managed with her current drug regimen. Objective: Vital Signs (8 Hrs) Temp Pulse Resp BP Pulse Ox 02/11/18 07:29 36.4 C 99 16 131/81 H 94 02/11/18 03:53 93 20 125/82 H 95 Intake/Output (24 Hrs) 02/10/18 02/11/18 02/12/18 05:59 05:59 05:59 Intake Total 960.5 690 200 Output Total 1600 900 100 Balance -639.5 -210 100 Intake: Oral (ml) 440 690 200 IV Infused (ml) 520.5 Diltiazem HCl/D5w 125 ml 47.5 @ Titrate IV CONT LATANYA Rx# :[id number] Ns 1,000 ml @ 100 mls/hr 473 IV CONT LATANYA Rx#: [id number] Output: Urine (ml) 1600 900 100 Bedside Commode 1000 500 100 Catheter 600 400 Other: Weight 85.5 kg 87.685 kg Number of Voids Bedside Commode 1 Number of Stools Bedside Commode 1 Result Diagrams: 02/11/18 03:36 02/11/18 03:36 Telemetry: a.fib with rates of 70-115BPM - Physical Exam Constitutional: no apparent distress Cardiovascular: no murmurs, no rubs, no gallops, irregularly irregular Peripheral Pulses: 2+: dorsalis-pedis (R), dorsalis-pedis (L) Respiratory: inspiratory crackles (left lung base. Improved) Skin: no edema Neurologic: AAOx3 ICD10 Worksheet Patient Problems: Problems Problem Status Onset Atrial fibrillation Acute Hematoma of hip Acute
[2018-02-11 11:11] VITALS: BP 111/77
--- NOTE | 2018-02-11 12:45 | PDIAF ---
- Diagnosis Diagnosis: R Hip Fracture, CHF Code Status: Do Not Resuscitate - Medication Management Discharge Medications: electronically signed and located in the Home Medication List. - Orders Services needed: Physical Therapy, Occupational Therapy Diet Recommendation: cardiac -low fat low salt - Follow Up Care Current Providers and Referrals: Patient,NotPresent [Unknown] - As per Instructions
--- NOTE | 2018-02-11 13:22 | PDDCSUM ---
Discharge Summary Discharge Summary: Date of Admission: 02/08/2018 Date of Discharge: 02/10/2018 Consults: Cardiology, Orthopaedics Procedures: CT RLE, CTA, TTE Followup: Cardiology, Orthopaedics, PCP Hospital Course Problem List: A Fib w RVR - Admitted with HR 100-140's - S/p 5 mg IV Metoprolol in ED, started on Metoprolol 12.5 mg BID - HR remains elevated overnight especially with activity - Cardiology consulted on 02/08, started Diltiazem gtt with rate controlled, transitioned to PO diltiazem 240 mg qd - CHADsVASC >2 given patient's age however given recent fall with hematoma would hold off on AC, will continue ASA 81 mg for now - Plan per cardiology to reevaluate chronic AC as an outpatient R Hip Fx - R Hip XR negative for fracture on admission - RLE CT performed on 02/09 shows nondisplaced fractures - Ortho consulted recommended nonoperative management, WBAT - PT/OT - PRN Pain medications Acute Hypoxic Respiratory Failure - Requiring 5L of 02 to maintain 02 sat >88%, improved to 2L this AM - No hx of 02 use, lung disease - CXR performed, possible focal infiltrate however no cough, fever, leukocytosis , will hold off on abx, also shows blunting of costoprhenic angles, likely component of fluid overload - TTE performed on 02/08 shows EF 40-45% with mild global hypokinesis, septal hypokinesis - Cardiology recommending holding lasix, ischemic w/u, but given negative trop and CP free, will defer to outpatient - Continue to wean 02 as tolerated Hepatic Steatosis - Suspect underlying liver involvement related to under-reported consumption of alcohol - ETOH level 291 on admission - Also with hyperbilirubinemia and elevated INR - RUQ U/S performed shows diffuse hepatic steatosis - Continue to monitor LFTs Anemia - Hgb 11.3 on admission, 9.5 this AM - Appears hx of ACD from 2014 - Will continue to monitor, transfuse H/H <7/20 FEN: Regular, IVF PRN Code: DNR Time spent on discharge was >35 minutes with >50% of time spent on patient education and counseling.
--- NOTE | 2018-02-11 13:49 | ASMTLACE ---
LACE Length of stay for Answers: 4-6 days current admission Acuity / Level of Answers: Yes Care: Did the patient have an inpatient admission? Comorbidities - select Answers: Opioid dependence all that apply / Chronic pain # of Emergency department Answers: 1-2 visits in the last 6 months Score: 12 Date Signed: 02/11/2018 01:48 PM Electronically Signed By:HERNAN Carroll
--- NOTE | 2018-02-11 13:52 | ASMTDCNOTE ---
Case Management Discharge Discharge Order Complete? Answers: Yes Patient to Obtain Answers: Other Notes: [facility] Medications Transportation Arranged Answers: Other Notes: [place] w/c w/ o2 Transport will Pick (Date 02/11/2018 04:30 PM & Time) EMTALA Complete Answers: No Case Management Transport Answers: No Form Complete Faxed Final Orders Answers: Yes Agency/Facility Transfer Answers: Yes Report Printed & Faxed to Receiving Agency Family Notified Answers: No Discharge Comments Notes: Pts case discussed in tx rounds. Pt is being d/c'd to [facility] today. DC orders sent. LORETTA Zimmer will call to give report. Non triggering pasrr completed. CM available for changes. Plan: [facility] Date Signed: 02/11/2018 01:51 PM Electronically Signed By:HERNAN Carroll
--- NOTE | 2018-02-11 13:52 | ASDISCHSUM ---
Discharge Information Plan Status:SNF Medically Cleared to Leave:02/10/2018 Discharge Date:02/10/2018 CM D/C Disposition: ADT D/C Disposition: Projected Discharge Date:02/11/2018 11:00 AM Transportation at D/C: Discharge Delay Reason: Follow-Up Date:02/11/2018 11:00 AM Discharge Slot: Final Diagnosis: Placement Information Referral Type:*[facility]/SNF Referral ID:[id number] Provider Name:[facility] Address 1:[address] Address 2: City:[place] Selection Factors: State:[place] Patient Contact Information Contact Name:ALIDA Relationship:Daughter Address: City:[place] Alternate Phone: State/Zip Code:[place] [address] Email: Financial Information Financial Class:Medicare Primary Plan Desc:MEDICARE INPATIENT Primary Plan Number:[id number] Secondary Plan Desc:[facility] Secondary Plan Number:[id number] Assessment Information [facility] CM Progress Note CM Note CM Note Notes: Pt is a 82 yo F [place] Pt presents with a-fib and hip hematoma. Pt has a history of falls and alcohol use. Pt and daughter are interested in getting a life alert. Pt needs ETOH education prior to discharge. Plan: TBD Date Signed: 02/08/2018 03:12 PM Electronically Signed By:HERNAN Segovia LACE LACE Length of stay for Answers: 4-6 days current admission Acuity / Level of Answers: Yes Care: Did the patient have an inpatient admission? Comorbidities - select Answers: Opioid dependence all that apply / Chronic pain # of Emergency department Answers: 1-2 visits in the last 6 months Score: 12 Date Signed: 02/11/2018 01:48 PM Electronically Signed By:HERNAN Carroll [facility] CM Progress Note CM Note CM Note Notes: Met with patient and daughter Debra to discuss rehab. Patient is amenable although anxious. I have sent referrals to [facility] and [facility], and Debra will visit today and let us know which one they choose. I also answered questions about what patient can expect upon discharge from SNF (ie homecare, private duty, etc....). Case Management will follow. Current CM Discharge plan: SNF, location TBD Date Signed: 02/10/2018 01:46 PM Electronically Signed By:Ashley Vora RN Case Management Discharge Plan Note Case Management Discharge Discharge Order Complete? Answers: Yes Patient to Obtain Answers: Other Notes: [facility] Medications Transportation Arranged Answers: Other Notes: Juan Bowles w/c w/ o2 Transport will Pick (Date 02/11/2018 04:30 PM & Time) MARIELOS Complete Answers: No Case Management Transport Answers: No Form Complete Faxed Final Orders Answers: Yes Agency/Facility Transfer Answers: Yes Report Printed & Faxed to Receiving Agency Family Notified Answers: No Discharge Comments Notes: Pts case discussed in tx rounds. Pt is being d/c'd to [facility] today. DC orders sent. LORETTA Zimmer will call to give report. Non triggering pasrr completed. CM available for changes. Plan: [facility] Date Signed: 02/11/2018 01:51 PM Electronically Signed By:HERNAN Carroll Intervention Information Intervention Type:*IM-Signed Date of Service:02/11/2018 01:51 PM Patient Type:Inpatient Staff Member:Nina Toribio Hours: Discipline: Severity: Comment:
[2018-02-12] MEDS ORDERED: ASPIRIN EC 81 MG TAB PO SCH (09:00)
== END 2018-02-11 16:32 | DRG 535 ==
LOC: EDAGE → EDUNIT# → F2W 02-08 00:44 → OBSVTOIN 02-08 14:26
PROVIDERS: ADMIT Family Medicine; ATTEND Family Medicine
DX: S32.501A Unspecified fracture of right pubis, initial encounter for closed fracture (principal); I48.91 Unspecified atrial fibrillation; J96.01 Acute respiratory failure with hypoxia; W19.XXXA Unspecified fall, initial encounter; Y92.013 Bedroom of single-family (private) house as the place of occurrence of the external cause; K76.0 Fatty (change of) liver, not elsewhere classified; D63.8 Anemia in other chronic diseases classified elsewhere; R74.0 Nonspecific elevation of levels of transaminase and lactic acid dehydrogenase [LDH]; I50.22 Chronic systolic (congestive) heart failure; E55.9 Vitamin D deficiency, unspecified; M54.9 Dorsalgia, unspecified; Z66 Do not resuscitate
CPT/HCPCS: 84484-PO; 92507-GN; 92523-GN; 97110-GP; 97116-GP; 97161-GP; 97165-GO; 97530-GP; 97535-GO; G0480; G8978-GP-CL; G8979-GP-CJ; G8987-GO-CJ; G8988-GO-CI; G9168-GN-CH; G9168-GO-CI; G9169-GN-CH; G9170-GN-CH; J1940; J2405

== ENCOUNTER 2018-03-05 23:53 | Emergency (ER) | payer OTHER, BC ==
--- NOTE | 2018-03-06 00:29 | EDPHY ---
H & P Stated Complaint: SHARP PAIN UNDERR R BREATH, WORSE WITH DEEP BREATH Time Seen by Provider: 03/06/18 00:04 HPI/ROS: Chief Complaint: Right lower chest pain HPI: 82-year-old who is currently recovering from pelvic fractures after fall on the of last month. She is also diagnosed with atrial fibrillation at that time. Currently taking aspirin daily. Patient was at home had a sudden onset of sharp pain in her right lower chest/upper abdomen. Is worse to take a deep breath. She took some oxycodone with no change. Denies any falls or any other injury. No nausea or vomiting. Does not have a history of similar pain in the past. She has been getting around her residence with a walker but is not as active as normal. No other past medical history. No fevers or chills. No cough. Perhaps some mild shortness of breath. ROS: 10 systems were reviewed and were negative except those elements noted in the HPI. PMH: Pelvic fracture, atrial fibrillation Social History: No smoking, no alcohol, no recreational drug use Family History: non-contributory Physical Exam: Gen: Awake, Alert, No Distress HEENT: Nose: no rhinorrhea Eyes: PERRLA, EOMI Mouth: Moist mucosa Neck: Supple, no JVD Chest: Patient has tenderness in the right lower anterior chest wall, lungs clear to auscultation Heart: S1, S2 normal, no murmur Abd: Soft, non-tender, no guarding, right upper quadrant is completely soft and benign. Back: no CVA tenderness, no midline tenderness Ext: no edema, non-tender Skin: no rash Neuro: CN II-XII intact, Sensation grossly intact, Strength 5/5 in bilateral upper and lower extremities - Personal History Current Tetanus/Diphtheria Vaccine: Yes Current Tetanus Diphtheria and Acellular Pertussis (TDAP): Yes - Medical/Surgical History Hx Asthma: No Hx Chronic Respiratory Disease: No Hx Diabetes: No Hx Cardiac Disease: Yes Hx Renal Disease: No Hx Cirrhosis: No Hx Alcoholism: No Hx HIV/AIDS: No Hx Splenectomy or Spleen Trauma: No Other PMH: Appendectomy 16 yrs age, RUE fx 2x, LUE fx 2/2 fall. PELVIC FX, A- FIB - Social History Smoking Status: Never smoked Constitutional: Initial Vital Signs Temperature (C) 37.0 C 03/05/18 23:57 Heart Rate 107 H 03/05/18 23:57 Respiratory Rate 18 03/05/18 23:57 Blood Pressure 120/85 H 03/05/18 23:57 O2 Sat (%) 89 L 03/05/18 23:57 O2 Delivery Mode Nasal Cannula O2 (L/minute) 2 Allergies/Adverse Reactions: erythromycin base [Erythromycin Base] Allergy (Intermediate, Verified 03/06/18 00:02) SCALP ITCHING AND FELT LIKE LITTLE BUMPS WERE ALL OVER IT Home Medications: Medication Instructions Recorded Acetaminophen [Tylenol 325mg (*)] 650 mg PO Q4HRS PRN tab 02/11/18 Aspirin EC [Aspirin EC 81 mg (*)] 81 mg PO DAILY tab 02/11/18 Diltiazem Cd [Cardizem ER 120 MG 240 mg PO DAILY #0 cap 02/11/18 (*)] Polyethylene Glycol 3350 [Miralax 17 gm PO DAILY PRN pkt 02/11/18 17 gm (*)] Sennosides/Docusate Sodium 1 - 2 tab PO BID tab 02/11/18 [Senokot-S] oxyCODONE IR [Oxycodone Ir (*)] 2.5 - 5 mg PO Q6HRS PRN tab 02/11/18 Diltiazem [Cardizem] 240 mg PO DAILY 03/06/18 Gabapentin [Neurontin 100 MG (*)] 100 mg PO HS 03/06/18 Meloxicam 7.5 mg PO DAILY 03/06/18 Medical Decision Making - Diagnostics Imaging Results: CT angiogram of the chest shows no pulmonary embolism, small pleural effusion on the right, osteopenia, cardiomegaly. Study interpreted by Dr. Gaspar, direct Radiology. ED Course/Re-evaluation: Patient presenting with right-sided sharp pleuritic pain, 3 weeks status post bilateral pelvic fractures. CT angiogram of the chest shows no PE or other acute abnormality. She does have small right pleural effusion. Patient is atrial fibrillation with RVR. She takes her diltiazem in the morning. Will give her anti-inflammatory and a small dose metoprolol here. Her abdomen is soft completely benign. She has no Germain sign or right upper quadrant tenderness. Laboratory evaluations are otherwise unremarkable. Heart rate pain or improved. Patient ambulating unassisted. Will discharge with follow-up with primary care physician. - Data Points Laboratory Results: Laboratory Results 03/06/18 00:20 03/06/18 00:20 03/06/18 03/06/18 00:20 00:20 WBC 10.05 10^3/uL H 10^3/uL (3.80-9.50) RBC 3.28 10^6/uL L 10^6/uL (4.18-5.33) Hgb 13.1 g/dL g/dL (12.6-16.3) Hct 38.4 % % (38.0-47.0) MCV 117.1 fL H fL (81.5-99.8) MCH 39.9 pg H pg (27.9-34.1) MCHC 34.1 g/dL g/dL (32.4-36.7) RDW 17.1 % H % (11.5-15.2) Plt Count 301 10^3/uL 10^3/uL (150-400) MPV 10.6 fL fL (8.7-11.7) Neut % (Auto) 74.8 % H % (39.3-74.2) Lymph % (Auto) 11.2 % L % (15.0-45.0) [place] % (Auto) 11.4 % % (4.5-13.0) Eos % (Auto) 1.4 % % (0.6-7.6) Baso % (Auto) 0.9 % % (0.3-1.7) Nucleat RBC Rel Count 0.0 % % (0.0-0.2) Absolute Neuts (auto) 7.51 10^3/uL H 10^3/uL (1.70-6.50) Absolute Lymphs (auto) 1.13 10^3/uL 10^3/uL (1.00-3.00) Absolute Monos (auto) 1.15 10^3/uL H 10^3/uL (0.30-0.80) Absolute Eos (auto) 0.14 10^3/uL 10^3/uL (0.03-0.40) Absolute Basos (auto) 0.09 10^3/uL 10^3/uL (0.02-0.10) Absolute Nucleated RBC 0.00 10^3/uL 10^3/uL (0-0.01) Immature Gran % 0.3 % % (0.0-1.1) Immature Gran # 0.03 10^3/uL 10^3/uL (0.00-0.10) Platelet Estimate ADEQUATE (ADEQ) Polychromasia 1+ H Oval Macrocytes 3+ H Smear Review By Pending Sodium 137 mEq/L mEq/L (135-145) Potassium 4.5 mEq/L mEq/L (3.5-5.2) Chloride 108 mEq/L mEq/L (97-110) Carbon Dioxide 19 mEq/l L mEq/l (22-31) Anion Gap 10 mEq/L mEq/L (6-14) BUN 12 mg/dL mg/dL (7-23) Creatinine 1.0 mg/dL mg/dL (0.6-1.0) Estimated GFR 53 Glucose 121 mg/dL H mg/dL (70-100) Calcium 9.0 mg/dL mg/dL (8.5-10.4) Total Bilirubin 1.0 mg/dL mg/dL (0.1-1.4) AST 45 IU/L IU/L (14-46) ALT 29 IU/L IU/L (9-52) Alkaline Phosphatase 240 IU/L H IU/L (38-126) Total Protein 7.6 g/dL g/dL (6.3-8.2) Albumin 3.7 g/dL g/dL (3.5-5.0) Medications Given: Discontinued Medications Ketorolac Tromethamine (Toradol) 15 mg IVP EDNOW ONE Stop: 03/06/18 01:42 Last Admin: 03/06/18 02:14 Dose: 15 mg Metoprolol Tartrate (Lopressor Injection) 5 mg IVP EDNOW ONE Stop: 03/06/18 01:42 Last Admin: 03/06/18 02:17 Dose: 5 mg Departure - Departure Disposition: Home, Routine, Self-Care Clinical Impression: Atrial fibrillation, Pleurisy Condition: Good Instructions: A-fib (Atrial Fibrillation) (ED), Pleurisy (ED) Additional Instructions: Follow up with your exercise specialist and primary care physician as scheduled. Return emergency depart for increasing pain, shortness of breath, fevers, cough , or any other concerns. Referrals: Marii Sylvester MD [Primary Care Provider] - As per Instructions
[2018-03-06] MEDS ORDERED: IOPAMIDOL (ISOVUE 370) 100 ML BTL IV ONE (00:43)
[2018-03-06 00:56] LABS: PLATELET COUNT 301 10^3/uL (150-400)
[2018-03-06] MEDS ORDERED: METOPROLOL TARTRATE 5 MG/5 ML INJ IVP ONE (01:41)
[2018-03-06] MEDS ORDERED: KETOROLAC 15 MG/1 ML SDV IVP ONE (01:41)
[2018-03-06 03:31] VITALS: BP 118/69
--- NOTE | 2018-03-06 05:25 | CPEKG ---
Test Reason : OPEN Blood Pressure : / mmHG Vent. Rate : 122 BPM Atrial Rate : 091 BPM P-R Int : 164 ms QRS Dur : 091 ms QT Int : 329 ms P-R-T Axes : 000 -52 051 degrees QTc Int : 469 ms Atrial fibrillation Paired ventricular premature complexes Left anterior fascicular block Confirmed by Tod Schmidt ([id number]) on 03/06/2018 5:24:36 AM Referred By: Tod Schmidt Confirmed By:Tod Schmidt
== END 2018-03-06 03:17 | disposition home or self-care (01) ==
DX: R07.81 Pleurodynia (principal); I48.91 Unspecified atrial fibrillation; J90 Pleural effusion, not elsewhere classified; I44.4 Left anterior fascicular block; I51.7 Cardiomegaly; M85.80 Other specified disorders of bone density and structure, unspecified site; Z79.899 Other long term (current) drug therapy; Z79.82 Long term (current) use of aspirin; S32.9XXD Fracture of unspecified parts of lumbosacral spine and pelvis, subsequent encounter for fracture with routine healing; W19.XXXD Unspecified fall, subsequent encounter
CPT/HCPCS: 71275; 93005; 96374; 96375; 99285; J1885; Q9967

== ENCOUNTER 2018-04-10 07:16 | Day surgery (SDC) | payer OTHER, BC ==
[2018-04-10] MEDS ORDERED: fentaNYL 100 MCG/2 ML INJ IVP ONE (07:22)
[2018-04-10] MEDS ORDERED: MIDAZOLAM 2 MG/2 ML VIAL IVP ONE (07:22)
[2018-04-10] MEDS ORDERED: ATROPINE SULFATE 1 MG/10 ML SYR IVP ONE (07:22)
[2018-04-10] MEDS ORDERED: NS 500 ML IV ONE (07:22)
[2018-04-10 08:18] LABS: INR 1.53 (0.83-1.16); PROTIME(PATIENT) 18.5 SEC (12.0-15.0)
[2018-04-10] MEDS ORDERED: PROPOFOL 200 MG/20 ML VIAL ONE (08:52)
[2018-04-10] MEDS ORDERED: LIDOCAINE 1% 5 ML SDV ONE (08:52)
[2018-04-10] MEDS ORDERED: NALOXONE HCL 0.4 MG/ML INJ IVP PRN (09:06)
--- NOTE | 2018-04-10 09:06 | POSTANESTH ---
Post Anesthetic Evaluation Cardiovascular Status: Normal, Stable Respiratory Status: Normal, Stable Level of Consciousness/Mental Status: Mildly Sleepy, Arousable Pain Control: Adequate, Prn Tx Ordered Nausea/Vomiting Control: Adequate, Prn Tx Ordered Complications Possibly Related to Anesthesia: None Noted
--- NOTE | 2018-04-10 09:06 | PDANEPAE ---
ANE History of Present Illness 82 year old female in A-fib for cardioversion. ANE Past Medical History - Cardiovascular History Hx Hypertension: Yes Hx Arrhythmias: Yes Hx Chest Pain: No Hx Coronary Artery / Peripheral Vascular Disease: No Hx CHF / Valvular Disease: No Hx Palpitations: No - Pulmonary History Hx COPD: No Hx Asthma/Reactive Airway Disease: No Hx Recent Upper Respiratory Infection: No Hx Oxygen in Use at Home: No Hx Sleep Apnea: No - Endocrine History Hx Diabetes: No - Chronic Pain History Chronic Pain: No ANE Review of Systems Review of systems is: negative Review of Systems: ANE Patient History - Allergies Allergies/Adverse Reactions: erythromycin base [Erythromycin Base] Allergy (Intermediate, Verified 03/06/18 00:02) SCALP ITCHING AND FELT LIKE LITTLE BUMPS WERE ALL OVER IT - Home Medications Home Medications: Eliquis 5 mg PO BID 04/10/18 [Last Taken 04/10/18 06:00] - Smoking Hx Smoking Status: Never smoked NIGHAT Labs/Vital Signs - Labs Result Diagrams: 04/10/18 07:41 - Vital Signs Height: 168 cm Weight: 86.2 kg ANE Physical Exam - Airway Neck exam: FROM Mallampati Score: Class 2 Mouth exam: normal dental/mouth exam - Pulmonary Pulmonary: no respiratory distress - Cardiovascular Cardiovascular: irregularly irregular - ASA Status ASA Status: III ANE Anesthesia Plan Anesthesia Plan: MAC
[2018-04-10] MEDS ORDERED: DILTIAZEM XR 240 MG CAP PO SCH (09:15)
--- NOTE | 2018-04-10 10:52 | ECHO ---
[email or web address] [address] [address] Main: [phone] Fax: Transthoracic Echocardiogram Name: BORIS OSULLIVAN MR#: [id number] Study Date: 04/10/2018 Study Time: 10:07 AM Date of : 1935 Age: 82 year(s) Height: 167.6 cm (66 in.) Weight: 86.18 kg (190 lb.) BSA: 1.96 m2 Gender: Female Examination: Limited Echo Indication: a fib Image Quality: Contrast: Requested by: Tutu Glass BP: 116 mmHg/72 mmHg Heart Rate: Rhythm: Indication: a fib Procedure Staff Offset Press Operator Helper: Radha Soares [facility] Reading Physician: Tutu Glass MD Requesting Provider: Conclusions: Normal size left ventricle. Low normal left ventricular systolic function. The ejection fraction is estimated to be 50-55 %. No regional WMA When compared to the 02/08/18 study. The LVEF has improved from 40/45%. Measurements: Chambers Valvular Assessment AV/MV Valvular Assessment TV/PV Normal Normal Normal Name Value Range Name Value Range Name Value Range EF Range: 50-55 % TR Vmax: 3.16 mm/s ( - ) TR PGmax: 40 mmHg ( - ) Continued Measurements: Findings: Left Ventricle: Normal size left ventricle. Low normal left ventricular systolic function. The ejection fraction is estimated to be 50-55 %. (No Signature Object) Patient: BORIS OSULLIVAN Study Date: 04/10/2018 Page 1 of 1 10:07 AM [id number]
[2018-04-10] MEDS ORDERED: APIXABAN 5 MG TAB PO SCH (21:00)
--- NOTE | 2018-04-15 11:21 | CPEKG ---
Test Reason : OPEN Blood Pressure : / mmHG Vent. Rate : 137 BPM Atrial Rate : 130 BPM P-R Int : 099 ms QRS Dur : 081 ms QT Int : 316 ms P-R-T Axes : 000 -55 014 degrees QTc Int : 477 ms Atrial fibrillation with rapid V-rate Left anterior fascicular block Repolarization abnormality, prob rate related Confirmed by Tutu Frausto ([id number]) on 04/15/2018 11:21:01 AM Referred By: Tutu Frausto Confirmed By:Tutu Frausto
--- NOTE | 2018-04-15 11:24 | CPEKG ---
Test Reason : OPEN Blood Pressure : / mmHG Vent. Rate : 074 BPM Atrial Rate : 075 BPM P-R Int : 188 ms QRS Dur : 105 ms QT Int : 443 ms P-R-T Axes : 033 -48 -32 degrees QTc Int : 492 ms Sinus rhythm Left anterior fascicular block Abnormal T, consider ischemia, diffuse leads Confirmed by Tutu Frausto ([id number]) on 04/15/2018 11:24:07 AM Referred By: Tutu Frausto Confirmed By:Tutu Frausto
== END 2018-04-10 11:20 | disposition home or self-care (01) ==
LOC: FCATH 07:16
PROVIDERS: ATTEND Internal Medicine Cardiovascular Disease
PROC: 5A2204Z Restoration of Cardiac Rhythm, Single (ICD-10-PCS; principal; 2018-04-10)
DX: I48.91 Unspecified atrial fibrillation (principal); Z79.01 Long term (current) use of anticoagulants; I10 Essential (primary) hypertension
CPT/HCPCS: J0461; J2704